=== PATIENT | male | born 1960 | race African-American/Black ===

== ENCOUNTER 2022-06-05 17:43 | Inpatient (IN) | payer MEDICARE ==
[~2022-06-05 17:43] MED LIST: Iopamidol-370 76% 500 ML MDV (1 ML CHARGE) ONE
[2022-06-05 18:30] LABS: #Eosinphils 0.1 thou/uL (0.0-0.7); #Lymphocytes 3.7 thou/uL (1.20-3.40); #Monocytes 1.6 thou/uL (0.11-0.59); #Neutrophils 7.9 thou/uL (1.40-6.50); %Basophils 0.1 % (0.0-1.0); %Eosinophils 0.5 % (0.0-10.0); %Lymphocytes 27.7 % (21.0-51.0); %Monocytes 12.3 % (0.0-10.0); %Neutrophils 59.3 % (42.0-75.0); Hemoglobin 11.2 g/dL (14.0-18.0); Mean Corpuscular Hemoglobin 28.5 pg (27.0-31.0); Mean Platelet Volume 7.4 fL (7.4-10.4); Platelet Count 456 10x3/uL (130-400); RBC Distribution Width 12.8 % (11.5-14.5); Red Blood Cell (RBC) Count 3.94 mill/uL (4.70-6.10); White Blood Cell (WBC) Count 13.3 10x3/uL (4.8-10.8)
[2022-06-05 18:46] LABS: ALT (SGPT) 48 U/L (8-55); AST (SGOT) 54 U/L (5-34); Albumin 3.9 g/dL (3.4-4.8); Alkaline Phosphatase 239 U/L (40-110); Anion Gap 20 mmol/L (10-20); BUN (Urea Nitrogen) 33 mg/dL (8.4-25.7); Bilirubin, Total 0.6 mg/dL (0.2-1.2); Calc. Creatinine Clearance 0 mL/min (70-130); Carbon Dioxide 23 mmol/L (23-31); Chloride 93 mmol/L (98-107); Estimated GFR 22; Glucose 131 mg/dL (80-115); Potassium 4.3 mmol/L (3.5-5.1); Protein, Total 6.9 g/dL (5.8-8.1); Sodium 132 mmol/L (136-145)
[2022-06-05 18:49] LABS: INR-International Normal Ratio 1.1; Prothrombin Time 14.3 sec (12.0-14.7)
[2022-06-05] MEDS ORDERED: levETIRAcetam 500 MG/5 ML VIAL ONE (19:36)
[2022-06-05 20:44] LABS: Bacteria/HPF None Seen HPF (None Seen); Bilirubin Negative (Negative); Blood, Urine 1+ (Negative); Clarity Clear (Clear); Glucose, Urine (Dipstick) Normal (Negative); Ketone, Urine Negative (Negative); Leukocyte Negative Leu/uL (Negative); Nitrite Negative (Negative); Protein, Urine (Dipstick) 50 mg/dL (Neg-Trace); RBC/HPF 0-3 HPF (0-3); Specific Gravity, Urine 1.038 (1.002-1.036); Squamous Epithelial None Seen HPF (0-3); Urobilinogen Normal mg/dL (Less than 2); WBC/HPF 0-3 HPF (0-3)
[2022-06-05 22:18] VITALS: BMI 48.3
[2022-06-05 23:40] LABS: Lactic Acid 2.2 mmol/L (0.5-2.2)
[2022-06-06] MEDS ORDERED: Cefepime 1 GM in Sodium Chloride 0.9% 100 ML IVPB SCH (05:00)
[2022-06-06] MEDS: Sodium Chloride 0.9% 1,000 ML IV SCH ×2 (05:01→20:08)
[2022-06-06] MEDS ORDERED: VANCOMYCIN 2 GRAM/500 ML BAG 2 GM in Premix Bag 1 BAG IVPB SCH (06:00)
[2022-06-06] MEDS: Ipratropium/Albuterol 3 ML NEB IPPB SCH ×2 (07:58→17:43)
[2022-06-06] MEDS ORDERED: levETIRAcetam in NS 1,000 MG in Premix Bag 1 BAG IVPB SCH (09:00)
[2022-06-06] MEDS: levETIRAcetam 500 MG/5 ML VIAL SLOW IVP SCH ×2 (09:13→20:04)
[2022-06-06 09:49] LABS: #Eosinphils 0.1 thou/uL (0.0-0.7); #Lymphocytes 2.3 thou/uL (1.20-3.40); #Monocytes 1.1 thou/uL (0.11-0.59); #Neutrophils 7.3 thou/uL (1.40-6.50); %Basophils 0.1 % (0.0-1.0); %Eosinophils 0.7 % (0.0-10.0); %Lymphocytes 21.2 % (21.0-51.0); %Monocytes 10.1 % (0.0-10.0); %Neutrophils 67.9 % (42.0-75.0); Hemoglobin 11.9 g/dL (14.0-18.0); Mean Corpuscular HGB CONC 32.1 g/dL (32.0-36.0); Mean Corpuscular Hemoglobin 28.6 pg (27.0-31.0); Mean Corpuscular Volume 89.2 fl (78.0-98.0); Mean Platelet Volume 7.3 fL (7.4-10.4); Platelet Count 420 10x3/uL (130-400); RBC Distribution Width 12.7 % (11.5-14.5); Red Blood Cell (RBC) Count 4.17 mill/uL (4.70-6.10); White Blood Cell (WBC) Count 10.8 10x3/uL (4.8-10.8)
[2022-06-06 10:12] LABS: Anion Gap 15 mmol/L (10-20); BUN (Urea Nitrogen) 34 mg/dL (8.4-25.7); Calc. Creatinine Clearance 88 mL/min (70-130); Calcium 9.7 mg/dL (7.8-10.44); Carbon Dioxide 28 mmol/L (23-31); Chloride 93 mmol/L (98-107); Estimated GFR 38; Glucose 108 mg/dL (80-115); Potassium 4.2 mmol/L (3.5-5.1); Sodium 132 mmol/L (136-145)
[2022-06-06] MEDS: Albuterol HFA (OR) 200 PUFF INH INH PRN (14:40)
[2022-06-06] MEDS: Acetaminophen 325 MG TAB PO PRN (20:01)
[2022-06-07] MEDS: Morphine 4 MG/ML VIAL SLOW IVP PRN ×3 (01:15→23:35)
[2022-06-07] MEDS: Sodium Chloride 0.9% 1,000 ML IV SCH ×3 (01:15→20:49)
[2022-06-07] MEDS: Acetaminophen 325 MG TAB PO PRN ×2 (05:34→20:50)
[2022-06-07] MEDS ORDERED: Vancomycin 1.5 GRAM/300 ML BAG 1.5 GM in Premix Bag 1 BAG IVPB SCH (06:00)
[2022-06-07 06:24] LABS: #Eosinphils 0.1 thou/uL (0.0-0.7); #Lymphocytes 3.1 thou/uL (1.20-3.40); #Neutrophils 5.8 thou/uL (1.40-6.50); %Basophils 0.3 % (0.0-1.0); %Eosinophils 0.7 % (0.0-10.0); %Lymphocytes 31.5 % (21.0-51.0); %Monocytes 9.7 % (0.0-10.0); %Neutrophils 57.9 % (42.0-75.0); Hemoglobin 11.8 g/dL (14.0-18.0); Mean Corpuscular HGB CONC 33.1 g/dL (32.0-36.0); Mean Corpuscular Hemoglobin 29.1 pg (27.0-31.0); Mean Corpuscular Volume 88.1 fl (78.0-98.0); Mean Platelet Volume 7.6 fL (7.4-10.4); Platelet Count 406 10x3/uL (130-400); RBC Distribution Width 12.6 % (11.5-14.5); Red Blood Cell (RBC) Count 4.06 mill/uL (4.70-6.10)
[2022-06-07 06:30] LABS: ALT (SGPT) 46 U/L (8-55); AST (SGOT) 46 U/L (5-34); Albumin 3.7 g/dL (3.4-4.8); Alkaline Phosphatase 211 U/L (40-110); Anion Gap 13 mmol/L (10-20); BUN (Urea Nitrogen) 21 mg/dL (8.4-25.7); Bilirubin, Total 0.6 mg/dL (0.2-1.2); Calc. Creatinine Clearance 120 mL/min (70-130); Calcium 9.7 mg/dL (7.8-10.44); Carbon Dioxide 28 mmol/L (23-31); Chloride 96 mmol/L (98-107); Estimated GFR 55; Glucose 105 mg/dL (80-115); Magnesium 1.7 mg/dL (1.6-2.6); Protein, Total 7.7 g/dL (5.8-8.1); Sodium 133 mmol/L (136-145)
[2022-06-07] MEDS: levETIRAcetam 500 MG/5 ML VIAL SLOW IVP SCH ×2 (11:20→20:51)
[2022-06-07] MEDS: Cephalexin 250 MG CAP PO SCH (23:59)
[2022-06-08] MEDS: Morphine 4 MG/ML VIAL SLOW IVP PRN ×4 (03:42→22:51)
[2022-06-08 05:05] LABS: #Basophils 0.1 thou/uL (0.0-0.2); #Eosinphils 0.2 thou/uL (0.0-0.7); #Monocytes 0.8 thou/uL (0.11-0.59); #Neutrophils 5.1 thou/uL (1.40-6.50); %Basophils 0.8 % (0.0-1.0); %Eosinophils 1.9 % (0.0-10.0); %Lymphocytes 32.6 % (21.0-51.0); %Neutrophils 55.7 % (42.0-75.0); Hemoglobin 11.1 g/dL (14.0-18.0); Mean Corpuscular HGB CONC 31.2 g/dL (32.0-36.0); Mean Corpuscular Volume 89.8 fl (78.0-98.0); Mean Platelet Volume 7.2 fL (7.4-10.4); Platelet Count 404 10x3/uL (130-400); RBC Distribution Width 12.4 % (11.5-14.5); Red Blood Cell (RBC) Count 3.95 mill/uL (4.70-6.10); White Blood Cell (WBC) Count 9.1 10x3/uL (4.8-10.8)
[2022-06-08 05:24] LABS: Anion Gap 13 mmol/L (10-20); BUN (Urea Nitrogen) 15 mg/dL (8.4-25.7); Calc. Creatinine Clearance 150 mL/min (70-130); Calcium 9.5 mg/dL (7.8-10.44); Carbon Dioxide 29 mmol/L (23-31); Chloride 98 mmol/L (98-107); Estimated GFR 72; Glucose 98 mg/dL (80-115); Potassium 4.3 mmol/L (3.5-5.1); Sodium 136 mmol/L (136-145)
[2022-06-08] MEDS: Sodium Chloride 0.9% 1,000 ML IV SCH ×2 (07:47→21:11)
[2022-06-08] MEDS: Acetaminophen 325 MG TAB PO PRN ×2 (09:06→21:07)
[2022-06-08] MEDS: levETIRAcetam 500 MG/5 ML VIAL SLOW IVP SCH (09:06)
[2022-06-08] MEDS: Cephalexin 250 MG CAP PO SCH (09:06)
[2022-06-08] MEDS: levETIRAcetam 500 MG TAB PO SCH (21:06)
[2022-06-08] MEDS: Cefepime 1 GM in Sodium Chloride 0.9% 100 ML IVPB SCH (21:11)
[2022-06-09] MEDS: Sodium Chloride 0.9% 1,000 ML IV SCH ×3 (02:45→21:38)
[2022-06-09] MEDS: Acetaminophen 325 MG TAB PO PRN ×3 (04:51→18:09)
[2022-06-09 05:12] LABS: #Basophils 0.1 thou/uL (0.0-0.2); #Eosinphils 0.3 thou/uL (0.0-0.7); #Lymphocytes 2.2 thou/uL (1.20-3.40); #Monocytes 0.8 thou/uL (0.11-0.59); #Neutrophils 5.4 thou/uL (1.40-6.50); %Basophils 0.9 % (0.0-1.0); %Eosinophils 3.6 % (0.0-10.0); %Lymphocytes 25.6 % (21.0-51.0); %Monocytes 8.8 % (0.0-10.0); %Neutrophils 61.1 % (42.0-75.0); Hemoglobin 11.1 g/dL (14.0-18.0); Mean Corpuscular HGB CONC 31.3 g/dL (32.0-36.0); Mean Corpuscular Hemoglobin 28.4 pg (27.0-31.0); Mean Corpuscular Volume 90.7 fl (78.0-98.0); Mean Platelet Volume 7.1 fL (7.4-10.4); Platelet Count 382 10x3/uL (130-400); RBC Distribution Width 12.4 % (11.5-14.5); Red Blood Cell (RBC) Count 3.92 mill/uL (4.70-6.10); White Blood Cell (WBC) Count 8.8 10x3/uL (4.8-10.8)
[2022-06-09 05:37] LABS: Anion Gap 12 mmol/L (10-20); BUN (Urea Nitrogen) 13 mg/dL (8.4-25.7); Calc. Creatinine Clearance 157 mL/min (70-130); Calcium 9.6 mg/dL (7.8-10.44); Carbon Dioxide 29 mmol/L (23-31); Chloride 101 mmol/L (98-107); Estimated GFR 76; Glucose 97 mg/dL (80-115); Potassium 4.5 mmol/L (3.5-5.1); Sodium 137 mmol/L (136-145)
[2022-06-09] MEDS: Morphine 4 MG/ML VIAL SLOW IVP PRN ×2 (06:36→13:50)
[2022-06-09] MEDS: Cefepime 1 GM in Sodium Chloride 0.9% 100 ML IVPB SCH ×2 (08:53→21:35)
[2022-06-09] MEDS: levETIRAcetam 500 MG TAB PO SCH ×2 (08:54→21:35)
[2022-06-10] MEDS: Acetaminophen 325 MG TAB PO PRN ×2 (02:00→08:17)
[2022-06-10] MEDS: Cefepime 1 GM in Sodium Chloride 0.9% 100 ML IVPB SCH (08:18)
[2022-06-10] MEDS: levETIRAcetam 500 MG TAB PO SCH ×2 (08:18→20:25)
[2022-06-10] MEDS: Sodium Chloride 0.9% 1,000 ML IV SCH (10:13)
[2022-06-10] MEDS ORDERED: Albuterol 200 PUFF (6.7GM INHALER) INH PRN (11:54)
[2022-06-10] MEDS ORDERED: Ipratropium/Albuterol 3 ML NEB NEB PRN (11:54)
[2022-06-10] MEDS ORDERED: Promethazine HCl 6.25 MG/5 ML Syrup PO PRN (12:28)
[2022-06-10] MEDS ORDERED: Dextromethorphan 30 MG/5 ML (89 ML BOTTLE) PO PRN (12:29)
[2022-06-10] MEDS ORDERED: tiZANidine HCl 4 MG TAB PO SCH (12:30)
[2022-06-10] MEDS: Pregabalin 75 MG CAP PO SCH ×2 (14:49→20:24)
[2022-06-10] MEDS: HYDROcodone/Acetaminophen 5/325 mg Tablet PO PRN (14:50)
[2022-06-10] MEDS ORDERED: Mometasone 200 MCG/Formoterol 5 MCG 120 PUFF INHALER INH SCH (18:30)
[2022-06-10] MEDS: Ipratropium/Albuterol 3 ML NEB NEB SCH (19:14)
[2022-06-10] MEDS: Mometasone 100 MCG/PUFF (1 INHALER) INH SCH (19:26)
[2022-06-10] MEDS: Atorvastatin Calcium 20 MG TAB PO SCH (20:25)
[2022-06-10] MEDS: tiZANidine HCl 4 MG TAB PO SCH (20:25)
[2022-06-11] MEDS: Ipratropium/Albuterol 3 ML NEB NEB SCH ×4 (01:18→19:06)
[2022-06-11] MEDS: HYDROcodone/Acetaminophen 5/325 mg Tablet PO PRN ×2 (04:30→11:11)
[2022-06-11] MEDS: Mometasone 100 MCG/PUFF (1 INHALER) INH SCH ×2 (07:20→19:06)
[2022-06-11] MEDS: levETIRAcetam 500 MG TAB PO SCH ×2 (08:49→20:58)
[2022-06-11] MEDS: Pregabalin 75 MG CAP PO SCH ×3 (08:49→20:58)
[2022-06-11] MEDS: Hydrochlorothiazide 25 MG TAB PO SCH (08:49)
[2022-06-11] MEDS: tiZANidine HCl 4 MG TAB PO SCH ×2 (08:50→21:02)
[2022-06-11] MEDS: DULoxetine 30 MG CAP PO SCH (08:50)
[2022-06-11] MEDS: Ferrous Sulfate 325 MG TAB PO SCH (08:50)
[2022-06-11] MEDS ORDERED: Pregabalin 75 MG CAP PO SCH (18:00)
[2022-06-11] MEDS: Atorvastatin Calcium 20 MG TAB PO SCH (20:57)
[2022-06-12] MEDS: Ipratropium/Albuterol 3 ML NEB NEB SCH ×4 (01:38→19:10)
[2022-06-12] MEDS: Mometasone 100 MCG/PUFF (1 INHALER) INH SCH ×2 (08:31→19:20)
[2022-06-12] MEDS: Hydrochlorothiazide 25 MG TAB PO SCH (09:11)
[2022-06-12] MEDS: levETIRAcetam 500 MG TAB PO SCH ×2 (09:11→22:15)
[2022-06-12] MEDS: Pregabalin 75 MG CAP PO SCH (09:12)
[2022-06-12] MEDS: Ferrous Sulfate 325 MG TAB PO SCH (09:12)
[2022-06-12] MEDS: DULoxetine 30 MG CAP PO SCH (09:12)
[2022-06-12] MEDS: tiZANidine HCl 4 MG TAB PO SCH (09:14)
[2022-06-12] MEDS: HYDROcodone/Acetaminophen 5/325 mg Tablet PO PRN (13:16)
[2022-06-12] MEDS: Methocarbamol 500 MG TAB PO SCH ×2 (17:08→22:14)
[2022-06-12] MEDS: Pregabalin 50 MG CAP PO SCH (22:14)
[2022-06-12] MEDS: Atorvastatin Calcium 20 MG TAB PO SCH (22:15)
[2022-06-13] MEDS: Ipratropium/Albuterol 3 ML NEB NEB SCH ×4 (00:37→18:40)
[2022-06-13] MEDS: Mometasone 100 MCG/PUFF (1 INHALER) INH SCH ×2 (07:53→19:23)
[2022-06-13] MEDS: DULoxetine 30 MG CAP PO SCH (09:06)
[2022-06-13] MEDS: Hydrochlorothiazide 25 MG TAB PO SCH (09:06)
[2022-06-13] MEDS: levETIRAcetam 500 MG TAB PO SCH ×2 (09:06→20:55)
[2022-06-13] MEDS: Ferrous Sulfate 325 MG TAB PO SCH (09:06)
[2022-06-13] MEDS: Pregabalin 50 MG CAP PO SCH ×2 (09:06→20:56)
[2022-06-13] MEDS: Methocarbamol 500 MG TAB PO SCH ×3 (09:07→20:56)
[2022-06-13] MEDS: HYDROcodone/Acetaminophen 5/325 mg Tablet PO PRN (12:48)
[2022-06-13] MEDS ORDERED: Labetalol HCl 100 MG/20 ML VIAL SLOW IVP PRN (15:06)
[2022-06-13] MEDS ORDERED: Labetalol HCl 100 MG/20 ML VIAL SLOW IVP SCH (15:15)
[2022-06-13] MEDS: Ondansetron PF 4 MG/2 ML Vial IVP PRN (19:45)
[2022-06-13] MEDS: Acetaminophen 325 MG TAB PO PRN (20:55)
[2022-06-13] MEDS: Atorvastatin Calcium 20 MG TAB PO SCH (20:56)
[2022-06-14] MEDS: Ipratropium/Albuterol 3 ML NEB NEB SCH ×4 (01:15→18:35)
[2022-06-14] MEDS: Mometasone 100 MCG/PUFF (1 INHALER) INH SCH ×2 (08:33→18:35)
[2022-06-14] MEDS: Ondansetron PF 4 MG/2 ML Vial IVP PRN ×2 (08:57→18:01)
[2022-06-14] MEDS: Hydrochlorothiazide 25 MG TAB PO SCH (09:45)
[2022-06-14] MEDS: Losartan 25 MG TAB PO SCH (09:46)
[2022-06-14] MEDS: levETIRAcetam 500 MG TAB PO SCH ×2 (09:46→20:37)
[2022-06-14] MEDS: Pregabalin 50 MG CAP PO SCH ×2 (09:46→20:37)
[2022-06-14] MEDS: DULoxetine 30 MG CAP PO SCH (09:46)
[2022-06-14] MEDS: Ferrous Sulfate 325 MG TAB PO SCH (09:47)
[2022-06-14] MEDS: Acetaminophen 325 MG TAB PO PRN ×3 (09:47→18:14)
[2022-06-14] MEDS: Methocarbamol 500 MG TAB PO SCH ×3 (09:47→20:37)
[2022-06-14] MEDS ORDERED: Meclizine HCl 25 MG TAB PO PRN (15:11)
[2022-06-14] MEDS ORDERED: Meclizine HCl 25 MG TAB PO SCH (15:15)
[2022-06-14] MEDS ORDERED: Scopolamine 1.5 mg/72 hour Patch TD SCH (18:00)
[2022-06-14] MEDS: Albuterol HFA (OR) 200 PUFF INH INH PRN (19:40)
[2022-06-14] MEDS: Atorvastatin Calcium 20 MG TAB PO SCH (20:37)
[2022-06-15] MEDS: Ipratropium/Albuterol 3 ML NEB NEB SCH ×3 (01:25→14:42)
[2022-06-15] MEDS: Mometasone 100 MCG/PUFF (1 INHALER) INH SCH ×2 (08:18→19:05)
[2022-06-15] MEDS: Methocarbamol 500 MG TAB PO SCH ×3 (09:45→20:41)
[2022-06-15] MEDS: levETIRAcetam 500 MG TAB PO SCH ×2 (09:45→20:41)
[2022-06-15] MEDS: Losartan 25 MG TAB PO SCH (09:45)
[2022-06-15] MEDS: DULoxetine 30 MG CAP PO SCH (09:45)
[2022-06-15] MEDS: Ferrous Sulfate 325 MG TAB PO SCH (09:45)
[2022-06-15] MEDS: Hydrochlorothiazide 25 MG TAB PO SCH (09:46)
[2022-06-15] MEDS: Pregabalin 50 MG CAP PO SCH ×2 (09:46→20:41)
[2022-06-15] MEDS: Ipratropium 200 Puff Oral Inhaler INH SCH ×2 (13:45→19:05)
[2022-06-15] MEDS: Albuterol HFA (OR) 200 PUFF INH INH SCH ×2 (13:45→19:31)
[2022-06-15] MEDS ORDERED: Ipratropium 200 Puff Oral Inhaler INH PRN (15:34)
[2022-06-15] MEDS ORDERED: Albuterol HFA (OR) 200 PUFF INH INH PRN (15:45)
[2022-06-15] MEDS: Atorvastatin Calcium 20 MG TAB PO SCH (20:42)
[2022-06-16] MEDS: Ipratropium 200 Puff Oral Inhaler INH SCH ×4 (01:50→18:42)
[2022-06-16] MEDS: Albuterol HFA (OR) 200 PUFF INH INH SCH ×4 (02:59→19:25)
[2022-06-16] MEDS: Mometasone 100 MCG/PUFF (1 INHALER) INH SCH ×2 (08:37→19:25)
[2022-06-16] MEDS: Acetaminophen 325 MG TAB PO PRN (09:48)
[2022-06-16] MEDS: DULoxetine 30 MG CAP PO SCH (09:50)
[2022-06-16] MEDS: Hydrochlorothiazide 25 MG TAB PO SCH (09:50)
[2022-06-16] MEDS: Methocarbamol 500 MG TAB PO SCH ×3 (09:50→20:15)
[2022-06-16] MEDS: Ferrous Sulfate 325 MG TAB PO SCH (09:50)
[2022-06-16] MEDS: Pregabalin 50 MG CAP PO SCH ×2 (09:50→20:12)
[2022-06-16] MEDS: levETIRAcetam 500 MG TAB PO SCH ×2 (09:52→20:14)
[2022-06-16] MEDS: Losartan 25 MG TAB PO SCH ×2 (09:52→10:00)
[2022-06-16] MEDS: Sodium Chloride 0.9% 1,000 ML IV SCH (15:05)
[2022-06-16] MEDS: Atorvastatin Calcium 20 MG TAB PO SCH (20:17)
[2022-06-17] MEDS: Albuterol HFA (OR) 200 PUFF INH INH SCH ×2 (01:11→07:31)
[2022-06-17] MEDS: Ipratropium 200 Puff Oral Inhaler INH SCH ×2 (01:12→07:30)
[2022-06-17 05:21] LABS: #Basophils 0.1 thou/uL (0.0-0.2); #Eosinphils 0.2 thou/uL (0.0-0.7); #Lymphocytes 3.3 thou/uL (1.20-3.40); #Monocytes 0.8 thou/uL (0.11-0.59); #Neutrophils 5.6 thou/uL (1.40-6.50); %Basophils 0.8 % (0.0-1.0); %Eosinophils 1.6 % (0.0-10.0); %Lymphocytes 33.3 % (21.0-51.0); %Monocytes 7.7 % (0.0-10.0); %Neutrophils 56.6 % (42.0-75.0); Hemoglobin 12.5 g/dL (14.0-18.0); Mean Corpuscular HGB CONC 32.9 g/dL (32.0-36.0); Mean Corpuscular Hemoglobin 28.9 pg (27.0-31.0); Mean Corpuscular Volume 87.7 fl (78.0-98.0); Mean Platelet Volume 7.7 fL (7.4-10.4); Platelet Count 443 10x3/uL (130-400); RBC Distribution Width 12.4 % (11.5-14.5); Red Blood Cell (RBC) Count 4.34 mill/uL (4.70-6.10); White Blood Cell (WBC) Count 9.9 10x3/uL (4.8-10.8)
[2022-06-17 05:50] LABS: Anion Gap 13 mmol/L (10-20); BUN (Urea Nitrogen) 14 mg/dL (8.4-25.7); Calc. Creatinine Clearance 171 mL/min (70-130); Calcium 9.7 mg/dL (7.8-10.44); Carbon Dioxide 27 mmol/L (23-31); Chloride 97 mmol/L (98-107); Estimated GFR 85; Glucose 95 mg/dL (80-115); Magnesium 1.8 mg/dL (1.6-2.6); Potassium 3.7 mmol/L (3.5-5.1); Sodium 133 mmol/L (136-145)
[2022-06-17] MEDS: Acetaminophen 325 MG TAB PO PRN (06:08)
[2022-06-17] MEDS: Mometasone 100 MCG/PUFF (1 INHALER) INH SCH (07:30)
[2022-06-17] MEDS: levETIRAcetam 500 MG TAB PO SCH (09:20)
[2022-06-17] MEDS: DULoxetine 30 MG CAP PO SCH (09:20)
[2022-06-17] MEDS: Methocarbamol 500 MG TAB PO SCH ×2 (09:20→15:30)
[2022-06-17] MEDS: Pregabalin 50 MG CAP PO SCH (09:20)
[2022-06-17] MEDS: Ferrous Sulfate 325 MG TAB PO SCH (09:21)
[2022-06-17] MEDS: Sodium Chloride 0.9% 1,000 ML IV SCH ×2 (09:21→17:18)
[2022-06-17 12:00] VITALS: TEMP 98
[2022-06-17 16:21] VITALS: BP 131/68
== END 2022-06-17 17:55 | DRG 689 ==
LOC: ERS 17:43 → NEURO 20:11 → OBSVTOIN 06-08 15:27
PROVIDERS: ADMIT Internal Medicine; ATTEND Family Medicine
DX: N39.0 Urinary tract infection, site not specified (principal); G93.41 Metabolic encephalopathy; Z68.42 Body mass index [BMI] 45.0-49.9, adult; I95.1 Orthostatic hypotension; I10 Essential (primary) hypertension; K21.9 Gastro-esophageal reflux disease without esophagitis; J44.9 Chronic obstructive pulmonary disease, unspecified; G47.33 Obstructive sleep apnea (adult) (pediatric); R29.702 NIHSS score 2; M54.9 Dorsalgia, unspecified; G89.29 Other chronic pain; I48.0 Paroxysmal atrial fibrillation; R47.81 Slurred speech; R29.810 Facial weakness; E66.01 Morbid (severe) obesity due to excess calories; G40.909 Epilepsy, unspecified, not intractable, without status epilepticus; R11.2 Nausea with vomiting, unspecified; R53.81 Other malaise; Z79.899 Other long term (current) drug therapy; Z98.890 Other specified postprocedural states; Z87.891 Personal history of nicotine dependence; Z82.49 Family history of ischemic heart disease and other diseases of the circulatory system; Z79.51 Long term (current) use of inhaled steroids; Z20.822 Contact with and (suspected) exposure to COVID-19; R00.1 Bradycardia, unspecified; B96.5 Pseudomonas (aeruginosa) (mallei) (pseudomallei) as the cause of diseases classified elsewhere
CPT/HCPCS: 36415; 70450; 70496; 70498; 71045; 71260; 72131; 80048; 80053; 81003; 81015; 82533; 83605; 83735; 84484; 85025; 85610; 85730; 87040; 87077; 87081; 87086; 87186; 93005; 93306; 94640; 94760; 95816; 95819; 95957; 96374; 96375; 96376; 97139; G0378; J0692; J1953; J2270; J2405; J3370; J3490; J7050; J7620; Q9967; U0003; U0005

== ENCOUNTER 2022-07-09 09:47 | Outpatient (CLI) | payer MEDICARE | END 2022-07-09 09:48 | disposition home or self-care (01) | LOC: TBSIIMAG 09:47 | PROVIDERS: ATTEND Neurological Surgery | DX: M48.062 Spinal stenosis, lumbar region with neurogenic claudication (principal); Z98.890 Other specified postprocedural states; M47.816 Spondylosis without myelopathy or radiculopathy, lumbar region | CPT/HCPCS: 72100 ==